=== PATIENT | female | born 1990 | race Two or more races ===

== ENCOUNTER 2018-06-01 01:13 | Inpatient (IN) | payer OTHER ==
[~2018-06-01] VITALS: Ht 154.9 cm; Wt 3.2 kg
== END 2018-06-04 11:09 | disposition home or self-care (01) | DRG 788 ==
LOC: OB/GYN 01:13 → LDR 01:13 → O/R 08:31 → OB/GYN 12:28
PROVIDERS: Obstetrics & Gynecology
PROC: 4A1HXCZ Monitoring of Products of Conception, Cardiac Rate, External Approach (ICD-10-PCS; 2018-06-01)
PROC: 10D00Z1 Extraction of Products of Conception, Low, Open Approach (ICD-10-PCS; principal; 2018-06-01 07:00)
DX: O76 Abnormality in fetal heart rate and rhythm complicating labor and delivery (principal); Z3A.37 37 weeks gestation of pregnancy; Z37.0 Single live birth; Z22.330 Carrier of Group B streptococcus